=== PATIENT | male | born 1975 | race Caucasian/White ===

== ENCOUNTER 2016-11-22 11:14 | Emergency (ER) | payer OTHER ==
[~2016-11-22] VITALS: Ht 180.3 cm; Wt 95.3 kg
[2016-11-22] MEDS ORDERED: PREDNISONE 10 M10 MG PO (11:28)
[2016-11-22] MEDS ORDERED: ANTI-ITCH56 GM TP (13:00)
[2016-11-22 13:11] VITALS: BP 142/78
== END 2016-11-22 13:15 | disposition home or self-care (01) ==
LOC: ER 11:14
DX: R22.1 Localized swelling, mass and lump, neck (principal); T38.0X5A Adverse effect of glucocorticoids and synthetic analogues, initial encounter; F17.210 Nicotine dependence, cigarettes, uncomplicated; F10.99 Alcohol use, unspecified with unspecified alcohol-induced disorder; F12.10 Cannabis abuse, uncomplicated; Z91.018 Allergy to other foods; Y92.89 Other specified places as the place of occurrence of the external cause

== ENCOUNTER 2016-12-30 09:27 | Emergency (ER) | payer OTHER ==
[~2016-12-30] VITALS: Ht 180.3 cm; Wt 93.2 kg
[~2016-12-30 09:27] MED LIST: ANTI-ITCH56 GM TP; PREDNISONE 10 M10 MG PO
[2016-12-30] MEDS ORDERED: IBUPROFEN 800800 M1 PO (09:30)
[2016-12-30] MEDS ORDERED: SLEEP AID (09:30)
[2016-12-30] MEDS ORDERED: PREDNISONE 20 M20 MG PO ×2 (09:58→10:01)
[2016-12-30] MEDS ORDERED: ULTRAM 50MG TAB50 MG PO ×2 (09:58→10:01)
[2016-12-30] MEDS ORDERED: FLEXERIL PO ×2 (09:58→10:01)
[2016-12-30 11:20] VITALS: BP 135/94
== END 2016-12-30 11:20 | disposition home or self-care (01) ==
LOC: ER 09:27
DX: M43.6 Torticollis (principal); F17.210 Nicotine dependence, cigarettes, uncomplicated; Z88.8 Allergy status to other drugs, medicaments and biological substances; Z91.018 Allergy to other foods